=== PATIENT | female | born 1950 | race Hispanic/Latino ===

== ENCOUNTER 2020-09-06 13:03 | Observation (INO) | payer MEDICARE ==
[~2020-09-06] VITALS: Ht 167.6 cm; Wt 86.8 kg
[2020-09-06] MEDS ORDERED: PRASUGREL HCL 10 MG TABLET PO SCH (14:00)
[2020-09-06] MEDS ORDERED: NITROGLYCERIN 0.4 MG SL TAB SL PRN (14:00)
[2020-09-06] MEDS ORDERED: ACETAMINOPHEN 325 MG TAB PO PRN ×2 (14:00)
[2020-09-06] MEDS ORDERED: ONDANSETRON HCL 4 MG/2 ML VIAL IV PRN (14:00)
[2020-09-06 14:04] LABS: BASOPHILS % (AUTO) 0.4 % (0.0-5.0); EOSINOPHILS % (AUTO) 3.3 % (0.0-8.0); HEMATOCRIT 43.2 % (36-48); LYMPHOCYTES % (AUTO) 30.7 % (21.0-51.0); MEAN CORPUSCULAR HEMOGLOBIN 29.1 pg (27.0-33.0); MEAN CORPUSCULAR HGB CONC 32.2 g/dL (32.0-36.0); MEAN CORPUSCULAR VOLUME 90.6 fL (79-99); MONOCYTES % (AUTO) 9.7 % (3.0-13.0); NEUTROPHILS % (AUTO) 55.6 % (40.0-77.0); PLATELET COUNT (AUTO) 213 K/uL (130-400); RED BLOOD CELL COUNT(AUTO) 4.77 MIL/uL (4.00-5.50); RED CELL DISTRIBUTION WIDTH 12.4 % (11.0-15.5); WHITE BLOOD COUNT (AUTO) 6.9 K/uL (4.8-10.8)
[2020-09-06 14:09] LABS: POTASSIUM 4.1 mmol/L (3.5-5.1)
[2020-09-06 14:12] LABS: INR 1.01 (0.85-1.15)
[2020-09-06 14:13] LABS: PARTIAL THROMBOPLASTIN TIME 24.2 SEC (26.3-35.5)
[2020-09-06] MEDS ORDERED: GLUCAGON 1MG KIT 1 MG ML IM PRN (15:45)
[2020-09-06] MEDS ORDERED: LIDOCAINE HCL-MPF 1% 2ML VIAL IV PRN ×2 (15:45→19:00)
[2020-09-06] MEDS ORDERED: POTASSIUM CHLORIDE 20MEQ/100ML 100 ML IV PRN (15:45)
[2020-09-06] MEDS ORDERED: POTASSIUM CHLORIDE 20 MEQ ERTAB PO PRN ×2 (15:45→19:00)
[2020-09-06] MEDS ORDERED: POTASSIUM CHLORIDE 10% ELIXIR 20 MEQ/15 ML UDCUP PO PRN ×2 (15:45→19:00)
[2020-09-06] MEDS ORDERED: DEXTROSE 50%-WATER 50 ML DISP.SYRIN IV PRN (15:45)
[2020-09-06 16:10] VITALS: BP 120/60
[2020-09-06] MEDS ORDERED: INSULIN HUMULIN R 100 UNIT/ML 3ML SQ SCH (16:30)
[2020-09-06] MEDS ORDERED: SITA100T12 PO (16:45)
[2020-09-06] MEDS ORDERED: ASPI-1197 PO (16:45)
[2020-09-06] MEDS ORDERED: GABA-529 PO (16:45)
[2020-09-06] MEDS ORDERED: SENN-295 PO (16:45)
[2020-09-06] MEDS ORDERED: ISOS40TA PO (16:45)
[2020-09-06] MEDS ORDERED: GLUC100019 PO (16:45)
[2020-09-06] MEDS ORDERED: TELM1TAB PO (16:45)
[2020-09-06] MEDS ORDERED: CLOP75TA14 PO (16:45)
[2020-09-06] MEDS ORDERED: TIMO1DRO5 OP (16:45)
[2020-09-06] MEDS ORDERED: PANT40TA54 PO (16:45)
[2020-09-06] MEDS ORDERED: ATOR10 PO (16:45)
[2020-09-06] MEDS ORDERED: METO-408 PO (16:45)
[2020-09-06] MEDS ORDERED: CALC-190 PO (16:45)
[2020-09-06] MEDS ORDERED: VITA-164 PO (16:45)
[2020-09-06] MEDS ORDERED: FOLI0.8C PO (16:45)
[2020-09-06] MEDS ORDERED: CHOL500051 PO (16:45)
[2020-09-06] MEDS ORDERED: POTASSIUM CHLORIDE 10MEQ/100ML 100 ML IV PRN (19:00)
[2020-09-06 19:48] VITALS: BP 127/59
[2020-09-06] MEDS: INSULIN HUMULIN R 100 UNIT/ML 3ML SQ SCH (21:00)
[2020-09-06] MEDS ORDERED: FAMOTIDINE/PF 20 MG/2 ML VIAL IV SCH (21:00)
[2020-09-06 21:30] LABS: CREATINE KINASE, TOTAL 77 U/L (21-232); MYOGLOBIN 28 ng/mL (10-92); TROPONIN I < 0.04 ng/mL (0.00-0.06)
[2020-09-06] MEDS: ATORVASTATIN CALCIUM 40 MG TABLET PO SCH (21:44)
[2020-09-06 23:16] VITALS: BP 125/72
[2020-09-07] VITALS (9 sets, daily range): BP systolic 103–138; BP diastolic 57–98
[2020-09-07 02:18] LABS: BASOPHILS % (AUTO) 0.3 % (0.0-5.0); EOSINOPHILS % (AUTO) 5.5 % (0.0-8.0); MEAN CORPUSCULAR HEMOGLOBIN 28.9 pg (27.0-33.0); MEAN CORPUSCULAR HGB CONC 32.4 g/dL (32.0-36.0); MEAN CORPUSCULAR VOLUME 89.4 fL (79-99); MONOCYTES % (AUTO) 10.6 % (3.0-13.0); NEUTROPHILS % (AUTO) 41.5 % (40.0-77.0); PLATELET COUNT (AUTO) 194 K/uL (130-400); RED CELL DISTRIBUTION WIDTH 12.5 % (11.0-15.5); WHITE BLOOD COUNT (AUTO) 6.9 K/uL (4.8-10.8)
[2020-09-07 02:38] LABS: ALBUMIN 3.8 g/dL (3.5-5.0); BILIRUBIN,TOTAL 0.4 mg/dL (0.2-1.0); CREATININE 0.9 mg/dL (0.5-1.5); POTASSIUM 4.1 mmol/L (3.5-5.1)
[2020-09-07 02:44] LABS: CREATINE KINASE, TOTAL 72 U/L (21-232); MYOGLOBIN 30 ng/mL (10-92); TROPONIN I < 0.04 ng/mL (0.00-0.06)
[2020-09-07 05:08] LABS: HEMOGLOBIN A1C 7.6 % (4.0-6.0)
[2020-09-07 05:09] LABS: CHOLESTEROL 116 mg/dL (<200); HDL CHOLESTEROL 45 mg/dL (35-85); LDL DIRECT 61 mg/dL (0-99); TRIGLYCERIDES 70 mg/dL (30-200)
[2020-09-07] MEDS: INSULIN HUMULIN R 100 UNIT/ML 3ML SQ SCH ×4 (06:12→21:00)
[2020-09-07] MEDS: AMLODIPINE BESYLATE 5 MG TAB PO SCH (08:58)
[2020-09-07] MEDS: LOSARTAN 50 MG TABLET PO SCH (08:58)
[2020-09-07] MEDS ORDERED: METOPROLOL TARTRATE 25 MG TAB PO SCH (09:00)
[2020-09-07] MEDS ORDERED: ISOSORBIDE MONO 30MG TAB SR PO SCH (09:00)
[2020-09-07] MEDS: SENNOSIDES PO SCH (09:00)
[2020-09-07] MEDS ORDERED: ASPIRIN 81MG TAB.CHEW PO SCH (09:00)
[2020-09-07] MEDS: DOCUSATE SODIUM PO SCH (09:00)
[2020-09-07] MEDS ORDERED: ISOSORBIDE DINITRATE 20 MG TABLET PO SCH (10:16)
[2020-09-07] MEDS: PANTOPRAZOLE SODIUM 40 MG TABLET.DR PO SCH (11:14)
[2020-09-07] MEDS: FOLIC ACID 1 MG TABLET PO SCH (11:14)
[2020-09-07] MEDS: METOPROLOL SUCCINATE 50 MG TAB.SR.24H PO SCH (11:17)
[2020-09-07] MEDS ORDERED: IOHEXOL 350 MG/ML 100ML INFUS..BTL IV ONE (18:10)
[2020-09-07] MEDS ORDERED: FENTANYL CITRATE PF 50 MCG/1 ML 2ML VIAL ONE (18:10)
[2020-09-07] MEDS ORDERED: MIDAZOLAM HCL 1 MG/ML 2ML VIAL ONE (18:10)
[2020-09-07] MEDS ORDERED: BIVALIRUDIN 250 MG/VIAL IV ONE (18:10)
[2020-09-07] MEDS ORDERED: SODIUM BICARB 50MEQ 50ML VIAL 50 ML ONE (18:10)
[2020-09-07] MEDS ORDERED: NITROGLYCERIN 2 MG/VIAL VIAL IV ONE (18:10)
[2020-09-07] MEDS ORDERED: LIDOCAINE HCL 2% 20ML ONE (18:11)
[2020-09-07] MEDS ORDERED: NICARDIPINE HCL 25 MG/10 ML ML IV ONE (18:44)
[2020-09-07] MEDS ORDERED: HEPARIN SODIUM 1000UNIT/ML 10ML VIAL ONE (18:47)
[2020-09-07] MEDS ORDERED: SODIUM CHLORIDE 0.9% 1000ML 1,000 ML IV SCH ×2 (19:45→20:15)
[2020-09-07] MEDS: MORPHINE SULFATE 2 MG/ML 1ML SYG IV PRN (20:37)
[2020-09-07] MEDS ORDERED: GABAPENTIN 100 MG CAPSULE PO SCH (21:00)
[2020-09-07] MEDS: ATORVASTATIN CALCIUM 40 MG TABLET PO SCH (21:00)
[2020-09-07] MEDS ORDERED: TIMOLOL MALEATE 0.5% 5 ML BOTTLE OP SCH (21:00)
[2020-09-08] MEDS: MORPHINE SULFATE 2 MG/ML 1ML SYG IV PRN (00:48)
[2020-09-08 03:00] VITALS: BP 110/67
[2020-09-08] MEDS: INSULIN HUMULIN R 100 UNIT/ML 3ML SQ SCH ×2 (06:38→11:30)
[2020-09-08] MEDS: SENNOSIDES PO SCH (09:00)
[2020-09-08] MEDS: DOCUSATE SODIUM PO SCH (09:00)
[2020-09-08] MEDS ORDERED: PRASUGREL HCL 10 MG TABLET PO SCH (09:00)
[2020-09-08] MEDS: METOPROLOL SUCCINATE 50 MG TAB.SR.24H PO SCH (09:35)
[2020-09-08] MEDS: AMLODIPINE BESYLATE 5 MG TAB PO SCH (09:36)
[2020-09-08] MEDS: FOLIC ACID 1 MG TABLET PO SCH (09:37)
[2020-09-08] MEDS: LOSARTAN 50 MG TABLET PO SCH (09:50)
[2020-09-08 11:06] LABS: CREATININE 0.6 mg/dL (0.5-1.5); POTASSIUM 3.6 mmol/L (3.5-5.1)
[2020-09-08 11:11] LABS: ALBUMIN 3.7 g/dL (3.5-5.0); BILIRUBIN,TOTAL 0.4 mg/dL (0.2-1.0)
[2020-09-08 12:00] VITALS: BP 120/61
[2020-09-08] MEDS: PANTOPRAZOLE SODIUM 40 MG TABLET.DR PO SCH (14:29)
== END 2020-09-08 16:50 | disposition home or self-care (01) ==
LOC: EDH 13:03 → UNDOADMOB 13:04 → EDHIP 13:04 → INTOOBSV 13:04 → EDHIP 13:04 → 4AH 15:12
PROVIDERS: ADMIT Internal Medicine; ATTEND Internal Medicine
DX: R07.89 Other chest pain (principal); I25.110 Atherosclerotic heart disease of native coronary artery with unstable angina pectoris; I10 Essential (primary) hypertension; E78.5 Hyperlipidemia, unspecified; E11.9 Type 2 diabetes mellitus without complications; K21.9 Gastro-esophageal reflux disease without esophagitis; Z79.82 Long term (current) use of aspirin; Z79.84 Long term (current) use of oral hypoglycemic drugs; Z79.899 Other long term (current) drug therapy
CPT/HCPCS: 36252; 36415 ×3; 71045; 80048; 80053 ×2; 80061; 82550 ×3; 82948 ×8; 83036; 83874 ×3; 83880; 84484 ×3; 85025 ×2; 85610; 85730; 93005; 93458; 96374; 96375; 96376; 99284; C1760; C1769; C1894 ×3; G0378 ×48; J1644 ×2; J2250; J3010; J3490 ×5; Q9965 ×2; Q9967; 99156; 99157; J0583